=== PATIENT | female | born 1935 | race Caucasian/White ===

== ENCOUNTER 2016-12-11 15:04 | Emergency (ER) | payer OTHER ==
[~2016-12-11] VITALS: Ht 157.5 cm; Wt 72.7 kg
[2016-12-11] MEDS ORDERED: ENALAPRIL MALEAT5 MG PO (16:10)
[2016-12-11] MEDS ORDERED: VITAMIN D5000 UNI1 PO (16:11)
[2016-12-11] MEDS ORDERED: SAW PALMETTO450 MG PO (16:11)
[2016-12-11] MEDS ORDERED: VISION PLUS LU1 EACH PO (16:12)
[2016-12-11] MEDS ORDERED: PROBIOTIC1 EAC5 PO (16:12)
[2016-12-11 17:25] LABS: EOSINOPHIL (%) 0.1 % (0-5); HEMATOCRIT 39.9 % (36.0-46.0); IMMATURE GRANULOCYTE (%) 0.1 % (0.0-0.7); IMMATURE GRANULOCYTE COUNT 0.1 K/uL; MCH 31.8 PG (29.0-34.0); MCHC 33.6 G/DL (30.0-36.0); MCV 94.8 FL (83-99); MEAN PLAT.VOLUME 9.6 uM^3 (9.5-12.4); MONOCYTE (%) 8.8 % (3-12); MONOCYTE COUNT 0.6 K/uL (0-0.8); NEUTROPHIL (%) 76.1 % (45-76); NEUTROPHIL COUNT 5.2 K/uL (1.8-6.4); PLATELET COUNT 231 K/uL (156-360); RBC DIS.WIDTH-CV 12.9 % (11.8-14.6); RBC DIS.WIDTH-SD 43.1 % (39-53); RED BLOOD COUNT 4.21 M/uL (3.80-5.20); WHITE BLOOD COUNT 6.8 K/uL (4.1-10.2)
[2016-12-11 17:33] LABS: CHLORIDE 105 mEq/L (99-109); POTASSIUM 4.1 mEq/L (3.7-5.4); SODIUM 138 mEq/L (136-147)
[2016-12-11 17:35] LABS: GLUCOSE 157 mg/dL (70-99)
[2016-12-11 17:37] LABS: ANION GAP 11 MEQ/L (2-14); PROTHROMBIN TIME 10.2 (9.2-11.2); PTT 23.2 (25-32); TOTAL BILIRUBIN 0.3 mg/dL (0.0-1.0)
[2016-12-11 17:39] LABS: ALKALINE PHOSPHATASE 82 IU/L (3-129); GFR ESTIMATE (CALCULATED) > 59 mL/min/
[2016-12-11 17:40] LABS: UREA NITROGEN (BUN) 14 mg/dL (9-23)
[2016-12-11] MEDS ORDERED: XARELTO15 MG PO (20:18)
[2016-12-11 21:05] VITALS: BP 135/66
== END 2016-12-11 21:10 | disposition home or self-care (01) ==
LOC: EME 15:04
PROVIDERS: Physician Assistant
DX: I82.4Y1 Acute embolism and thrombosis of unspecified deep veins of right proximal lower extremity (principal); E11.9 Type 2 diabetes mellitus without complications; E78.5 Hyperlipidemia, unspecified; I10 Essential (primary) hypertension
CPT/HCPCS: 80053; 81003; 85025; 85610; 85730; 99281; 99285